=== PATIENT | female | born 2000 | race Caucasian/White ===

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

== ENCOUNTER 2024-03-22 09:32 | Emergency (ER) | payer BC, OTHER ==
[2024-03-22 09:51] VITALS: BP 141/87; PULSE 88
[2024-03-22 11:00] LABS: BASOPHILS PERCENT AUTO 0.4 % (0.0-1.0); EOSINOPHILS ABSOLUTE AUTO 0.1 K/mm3 (0.0-0.4); EOSINOPHILS PERCENT AUTO 0.6 % (0.0-6.0); HEMATOCRIT 41.2 % (37.0-47.0); HEMOGLOBIN 14.1 gm/dl (12.0-16.0); IMMATURE GRAN ABSOLUTE AUTO 0.02 K/mm3 (0.00-0.05); IMMATURE GRAN PERCENT AUTO 0.2 % (0.0-0.4); LYMPHOCYTES PERCENT AUTO 10.1 % (24.0-44.0); MEAN CORPUSCULAR HEMOGLOBIN 30.7 pg (28.0-32.0); MEAN CORPUSCULAR HGB CONC 34.2 g/dl (32.0-36.0); MEAN CORPUSCULAR VOLUME 89.8 fl (83.0-99.0); MEAN PLATELET VOLUME 8.5 fl (9.4-12.3); MONOCYTES ABSOLUTE AUTO 0.3 K/mm3 (0.0-0.8); MONOCYTES PERCENT AUTO 2.9 % (0.0-8.0); NEUTROPHILS ABSOLUTE AUTO 8.7 K/mm3 (1.8-7.7); NEUTROPHILS PERCENT AUTO 85.8 % (41.0-71.0); PLATELET COUNT,PLT 380 K/mm3 (150-400); RED BLOOD CELL COUNT 4.59 M/mm3 (4.10-5.30); WHITE BLOOD CELL COUNT,WBC 10.16 K/mm3 (3.9-11.3)
[2024-03-22] MEDS: Sodium Chloride 0.9% 1,000 ML IV STA (11:02)
[2024-03-22] MEDS: Ketorolac 30 MG/ML SDV IVPUSH ONE (11:02)
[2024-03-22] MEDS: Ondansetron 4 MG/2 ML SDV IVPUSH ONE (11:02)
[2024-03-22] MEDS: Sodium Chloride 0.9% 10 ML Syringe FLUSH PRN (11:02)
[2024-03-22 11:32] LABS: ALBUMIN 3.9 g/dl (3.4-5.0); ANION GAP 13.5 (5-15); BILIRUBIN TOTAL 0.5 mg/dL (0.2-1.0); BUN/CREATININE RATIO 11.4 (14-18); CALCIUM 9.1 mg/dL (8.5-10.1); CREATININE 0.7 mg/dL (0.55-1.02); EST CRCL DRUG DOSING (CG) 108.86 mL/min; POTASSIUM,K 3.5 mEq/L (3.5-5.1); PROTEIN TOTAL,TP 7.8 g/dl (6.4-8.2)
== END 2024-03-22 12:23 | disposition home or self-care (01) ==
LOC: JD.ED 09:32
DX: R10.30 Lower abdominal pain, unspecified (principal); Z86.16 Personal history of COVID-19
CPT/HCPCS: 36415; 80053; 83690; 84703; 85025; 96361; 96374; 96375; 99284; J1885; J2405; J3490; J7030

== ENCOUNTER 2024-06-09 17:13 | Inpatient (IN) | payer OTHER ==
[2024-06-09 18:59] LABS: BASOPHILS PERCENT AUTO 0.3 % (0.0-1.0); EOSINOPHILS PERCENT AUTO 0.2 % (0.0-6.0); HEMATOCRIT 41.8 % (37.0-47.0); IMMATURE GRAN ABSOLUTE AUTO 0.05 K/mm3 (0.00-0.05); IMMATURE GRAN PERCENT AUTO 0.4 % (0.0-0.4); LYMPHOCYTES ABSOLUTE AUTO 1.2 K/mm3 (1.0-4.8); LYMPHOCYTES PERCENT AUTO 9.3 % (24.0-44.0); MEAN CORPUSCULAR HEMOGLOBIN 30.6 pg (28.0-32.0); MEAN CORPUSCULAR HGB CONC 33.5 g/dl (32.0-36.0); MEAN CORPUSCULAR VOLUME 91.3 fl (83.0-99.0); MEAN PLATELET VOLUME 8.6 fl (9.4-12.3); MONOCYTES ABSOLUTE AUTO 0.5 K/mm3 (0.0-0.8); MONOCYTES PERCENT AUTO 3.6 % (0.0-8.0); NEUTROPHILS ABSOLUTE AUTO 11.4 K/mm3 (1.8-7.7); NEUTROPHILS PERCENT AUTO 86.2 % (41.0-71.0); PLATELET COUNT,PLT 441 K/mm3 (150-400); RED BLOOD CELL COUNT 4.58 M/mm3 (4.10-5.30); WHITE BLOOD CELL COUNT,WBC 13.21 K/mm3 (3.9-11.3)
[2024-06-09 19:04] LABS: APPEARANCE,URINE SLT CLOUDY (Clear); BILIRUBIN,URINE NEGATIVE (Negative); COLOR,URINE YELLOW (Yellow); GLUCOSE,URINE NEGATIVE (Negative); KETONES,URINE TRACE (Negative); LEUKOCYTE ESTERASE,URINE NEGATIVE (Negative); NITRITE,URINE NEGATIVE (Negative); OCCULT BLOOD,URINE 2+ (Negative); PROTEIN,URINE NEGATIVE (Negative); UROBILINOGEN,URINE 0.2 (0.2-1.0)
[2024-06-09] MEDS: Iopamidol 612 MG/ML 100 ML Bottle IVPUSH ONE (19:07)
[2024-06-09] MEDS: Sodium Chloride 0.9% 1,000 ML IV ONE (19:12)
[2024-06-09] MEDS: Ketorolac 15 MG/ML SDV IVPUSH ONE (19:13)
[2024-06-09 19:14] LABS: BACTERIA,URINE FEW /hpf (FEW); MUCUS,URINE FEW /hpf (FEW); RBC,URINE 20-30 /hpf (0-5); SQUAMOUS EPITHELIAL CELLS,UR 0-5 /hpf (0-5); WBC,URINE 0-5 /hpf (0-5)
[2024-06-09] MEDS: Sodium Chloride 0.9% 10 ML Syringe FLUSH PRN (19:14)
[2024-06-09 19:23] LABS: A/G RATIO 0.9 (1-2); ALBUMIN 3.7 g/dl (3.4-5.0); ANION GAP 16.7 (5-15); BILIRUBIN TOTAL 0.3 mg/dL (0.2-1.0); BUN/CREATININE RATIO 12.9 (14-18); CREATININE 0.7 mg/dL (0.55-1.02); EST CRCL DRUG DOSING (CG) 107.93 mL/min; POTASSIUM,K 3.7 mEq/L (3.5-5.1); PROTEIN TOTAL,TP 7.8 g/dl (6.4-8.2)
[2024-06-09] MEDS: Morphine 4 MG/ML Syringe IVPUSH ONE (20:46)
[2024-06-09] MEDS: Piperacillin/Tazobactam 4.5 GM in Sodium Chloride 0.9% 100 ML IV ONE (20:51)
[2024-06-09] MEDS: ARIPiprazole 5 MG Tab PO SCH (23:17)
[2024-06-09] MEDS: Dextrose 5%-0.45% NaCl 1,000 ML IV SCH (23:30)
[2024-06-10] MEDS ORDERED: FLU (Flulaval Triv) 24-25(6MOS UP)/PF 45 MCG/0.5 ML Syringe IM ONE (00:45)
[2024-06-10] MEDS: Dextrose 5%-0.45% NaCl 1,000 ML ONE (01:48)
[2024-06-10] MEDS ORDERED: Ketorolac 30 MG/ML SDV ONE (06:19)
[2024-06-10] MEDS ORDERED: Ketamine 200 MG/20 ML MDV ONE (06:19)
[2024-06-10] MEDS ORDERED: fentaNYL 100 MCG/2 ML SDV ONE (06:19)
[2024-06-10] MEDS ORDERED: Lidocaine 1% 5 ML VIAL ONE ×3 (06:19)
[2024-06-10] MEDS ORDERED: Dexamethasone 4 MG/ML 5 ML MDV ONE (06:19)
[2024-06-10] MEDS ORDERED: dexmedeTOMIDine HCl 200 MCG/2 ML SDV ONE (06:19)
[2024-06-10] MEDS ORDERED: Propofol 200 MG/20 ML SDV ONE (06:19)
[2024-06-10] MEDS ORDERED: Midazolam 1 MG/ML 2 ML SDV ONE (06:19)
[2024-06-10] MEDS ORDERED: Rocuronium 50 MG/5 ML Vial ONE (06:19)
[2024-06-10] MEDS ORDERED: Sodium Chloride 0.9% 100 ML ONE (06:46)
[2024-06-10] MEDS ORDERED: ceFAZolin 2 GM Vial ONE (06:57)
[2024-06-10] MEDS ORDERED: ePHEDrine 50 MG/ML SDV ONE (07:06)
[2024-06-10] MEDS ORDERED: HYDROmorphone 0.5 MG/0.5 ML Syringe IVPUSH PRN (07:42)
[2024-06-10] MEDS ORDERED: Ondansetron 4 MG/2 ML SDV IVPUSH PRN (07:42)
[2024-06-10] MEDS ORDERED: Sodium Chloride 0.9% 10 ML Syringe FLUSH PRN (07:42)
[2024-06-10] MEDS ORDERED: fentaNYL 100 MCG/2 ML SDV IVPUSH PRN (07:42)
[2024-06-10] MEDS ORDERED: Sugammadex Sodium 200 MG/2 ML VIAL IV ONE (07:44)
[2024-06-10] MEDS ORDERED: Ondansetron 4 MG/2 ML SDV ONE (07:44)
[2024-06-10] MEDS ORDERED: Lactated Ringers 1,000 ML IV SCH (07:45)
[2024-06-10] MEDS: Lidocaine 1% 30 ML SDV ONE (08:25)
[2024-06-10] MEDS: EPINEPHrine 1 MG/ML SDV ONE (08:25)
[2024-06-10] MEDS: Bupivacaine 0.5% 30 ML SDV ONE (09:00)
[2024-06-10] MEDS ORDERED: NORETHINDRONE ETHIN ESTRADIOL PO SCH (09:00)
[2024-06-10] MEDS ORDERED: DEXTROAMPHETAMINE PO SCH (09:00)
[2024-06-10] MEDS ORDERED: AMPHETAMINE PO SCH (09:00)
[2024-06-10] MEDS: Sodium Chloride 0.9% 10 ML Syringe FLUSH SCH (11:06)
[2024-06-10] MEDS: DULoxetine 30 MG Cap PO SCH (11:07)
[2024-06-10] MEDS: Acetaminophen/oxyCODONE 325-5 MG Tab PO PRN (14:49)
[2024-06-10] MEDS: Acetaminophen 325 MG Tab PO PRN (16:47)
[2024-06-11] MEDS: HYDROmorphone 1 MG/ML Syringe IVPUSH PRN (06:54)
[2024-06-11 12:40] VITALS: BP 123/71; PULSE 89
== END 2024-06-11 12:57 | disposition home or self-care (01) | DRG 399 ==
LOC: JD.ED 17:13 → JD.MS 20:52
PROVIDERS: ADMIT Surgery; ATTEND Surgery
PROC: 0DTJ4ZZ Resection of Appendix, Percutaneous Endoscopic Approach (ICD-10-PCS; principal; 2024-06-10 08:00)
DX: K35.30 Acute appendicitis with localized peritonitis, without perforation or gangrene (principal); G47.00 Insomnia, unspecified; H54.7 Unspecified visual loss; K59.09 Other constipation; F41.9 Anxiety disorder, unspecified; F90.9 Attention-deficit hyperactivity disorder, unspecified type; F32.9 Major depressive disorder, single episode, unspecified; F17.200 Nicotine dependence, unspecified, uncomplicated; Z86.16 Personal history of COVID-19; Z79.899 Other long term (current) drug therapy
CPT/HCPCS: 36415; 74177; 74177-26; 80053; 81001; 83690; 84703; 85025; 96361; 96374; 96375; 99285-25; A9270-GY; J0171; J0665; J0690; J1100; J1171; J1885; J2250; J2270; J2405; J2543; J2704; J3010; J3490; J7030; J7120; J7799; Q9967

== ENCOUNTER 2025-07-26 18:53 | Emergency (ER) | payer OTHER ==
[2025-07-26] MEDS ORDERED: Sodium Chloride 0.9% 10 ML Syringe FLUSH PRN (19:19)
[2025-07-26 19:26] LABS: BASOPHILS ABSOLUTE AUTO 0.1 K/mm3 (0.0-0.2); BASOPHILS PERCENT AUTO 0.6 % (0.0-1.0); EOSINOPHILS ABSOLUTE AUTO 0.3 K/mm3 (0.0-0.4); EOSINOPHILS PERCENT AUTO 2.1 % (0.0-6.0); IMMATURE GRAN ABSOLUTE AUTO 0.06 K/mm3 (0.00-0.05); IMMATURE GRAN PERCENT AUTO 0.4 % (0.0-0.4); LYMPHOCYTES ABSOLUTE AUTO 1.9 K/mm3 (1.0-4.8); LYMPHOCYTES PERCENT AUTO 11.7 % (24.0-44.0); MEAN PLATELET VOLUME 8.5 fl (9.4-12.3); MONOCYTES ABSOLUTE AUTO 0.8 K/mm3 (0.0-0.8); MONOCYTES PERCENT AUTO 4.9 % (0.0-8.0); NEUTROPHILS ABSOLUTE AUTO 12.9 K/mm3 (1.8-7.7); NEUTROPHILS PERCENT AUTO 80.3 % (41.0-71.0); NRBC ABSOLUTE 0.00 (0.00-0.02); NRBC PERCENT 0.0 % (0.0-0.2); PLATELET COUNT,PLT 468 K/mm3 (150-400); RED BLOOD CELL COUNT 4.58 M/mm3 (4.10-5.30); WHITE BLOOD CELL COUNT,WBC 16.01 K/mm3 (3.9-11.3)
[2025-07-26 19:36] LABS: A/G RATIO 1.0 (1-2); ALANINE AMINOTRANSFERASE,ALT 36.0 U/L (14-59); ASPARTATE AMNIOTRANSFERASE,AST 31.0 U/L (15-37); BILIRUBIN TOTAL 0.4 mg/dL (0.2-1.0); BLOOD UREA NITROGEN,BUN 13.0 mg/dL (7-18); CARBON DIOXIDE,CO2 28.0 mEq/L (21-32); CHLORIDE,CL 102.0 mEq/L (98-107); CREATININE 0.9 mg/dL (0.55-1.02); EST CRCL DRUG DOSING (CG) 83.23 mL/min; ESTIMATED GFR 92.0 mL/min (>60); GLUCOSE RANDOM 83.0 mg/dL (70-99); POTASSIUM,K 3.6 mEq/L (3.5-5.1); PROTEIN TOTAL,TP 7.2 g/dl (6.4-8.2); SODIUM,NA 139.0 mEq/L (136-145)
[2025-07-26 20:09] LABS: APPEARANCE,URINE CLEAR (Clear); GLUCOSE,URINE NEGATIVE (Negative); OCCULT BLOOD,URINE TRACE-LYSED (Negative)
[2025-07-26] MEDS: Iopamidol 612 MG/ML 100 ML Bottle IVPUSH ONE (20:13)
[2025-07-26] MEDS: Sodium Chloride 0.9% 10 ML Syringe FLUSH ONE (20:13)
[2025-07-26 20:50] LABS: EPITHELIAL CELLS,URINE 0-5 /hpf (0-5)
[2025-07-26 21:26] LABS: C. TRACHOMATIS BY PCR NOT DETECTED; N. GONORRHOEAE BY PCR NOT DETECTED
[2025-07-26] MEDS: Ketorolac 30 MG/ML SDV IVPUSH ONE (21:54)
[2025-07-26] MEDS: Iopamidol 755 Mg/ML 100 ML Bottle IVPUSH ONE (22:12)
[2025-07-27 01:45] VITALS: BP 118/73; PULSE 84
== END 2025-07-27 01:29 | disposition home or self-care (01) ==
LOC: JD.ED 18:53
DX: R10.31 Right lower quadrant pain (principal); R22.2 Localized swelling, mass and lump, trunk; Z86.16 Personal history of COVID-19; Z90.49 Acquired absence of other specified parts of digestive tract; Z88.8 Allergy status to other drugs, medicaments and biological substances; Z79.899 Other long term (current) drug therapy
CPT/HCPCS: 36415; 71260; 74177; 76856; 80053; 81001; 81515; 83690; 84703; 85025; 87491; 87591; 96374; 99284; J1885; J7030; Q9967; 99283